=== PATIENT | female | born 1960 ===

== ENCOUNTER → 2018-01-31 17:00 | Outpatient (CLI) | payer SELFPAY | DX: Z23 Encounter for immunization (principal) | CPT/HCPCS: 90471; 90686 ==

== ENCOUNTER → 2019-02-03 12:06 | Outpatient (CLI) | payer OTHER, SELFPAY ==
--- NOTE | 2019-02-03 12:14 | DI.RAD.S_ITS ---
PROCEDURE: XR FOOT RT MIN 3V INDICATIONS: right foot pain TECHNIQUE: 3 views of the foot were acquired. COMPARISON: None. FINDINGS: Bones: No fractures or dislocations. No suspicious bony lesions. Expected postoperative appearance after osteotomy and screw fixation at the distal first metatarsal and also cannulated screw/stable fusion crossing the second proximal interphalangeal joint. Soft tissues: No tibiotalar joint effusion. Achilles tendon appears normal. IMPRESSION: Expected postoperative changes, no sign of device loosening or disruption, source of new pain right foot is not found. Dictated by: Clarence Gabriel M.D. on 02/03/2019 at 13:43 Approved by: Clarence Gabriel M.D. on 02/03/2019 at 13:44
== END ==
PROVIDERS: Visit Provider Nurse Practitioner Family
DX: M79.671 Pain in right foot (principal); Z98.890 Other specified postprocedural states
CPT/HCPCS: 73630

== ENCOUNTER → 2019-04-17 16:04 | Outpatient (CLI) | payer OTHER, SELFPAY ==
[2019-04-17 17:11] LABS: Hematocrit 42.9 % (36-46); Hemoglobin 14.3 g/dL (12.0-16.0); Mean Corpuscular HGB Conc 33.5 % (30-36); Mean Corpuscular Hemoglobin 26.7 PG (26-34); Mean Corpuscular Volume 79.8 fL (80-100); Platelet Count 213 X10^3/uL (150-400); Red Blood Cell Count 5.37 X10^6/uL (4.0-5.2); Red Cell Distribution Width 13.4 % (11.6-14.8); White Blood Cell Count 8.5 X10^3/uL (4.5-11.0)
[2019-04-17 17:23] LABS: Alanine Aminotransferase 16 IU/L (<35); Albumin 4.6 g/dL (3.5-5.0); Albumin Globulin Ratio 1.6 (1.0-2.8); Alkaline Phosphatase 76 U/L (38-126); Aspartate Aminotransferase 24 IU/L (14-36); Bilirubin Total 0.6 mg/dL (0.2-1.3); Blood Urea Nitrogen 12 mg/dL (7-17); Calcium 9.7 mg/dL (8.4-10.2); Carbon Dioxide 24 mmol/L (22-32); Chloride 105 mmol/L (98-107); Cholesterol 269 mg/dL (140-199); Estimated Glomerular Filt Rate > 60.0 mL/min (>60); Globulin 2.8 g/dL (1.7-4.1); Glucose 93 mg/dL (80-110); HDL Cholesterol 50 mg/dL (40-60); HEMOLYSIS < 15 (0-50); LDL Cholesterol Calculated 193 mg/dL (<100); Potassium 4.4 mmol/L (3.4-5.1); Sodium 140 mmol/L (137-145); Total Protein 7.4 g/dL (6.3-8.2); Triglycerides 128 mg/dL (35-150)
== END ==
PROVIDERS: PCP Nurse Practitioner Family; Visit Provider Nurse Practitioner Family
DX: Z00.00 Encounter for general adult medical examination without abnormal findings (principal); Z13.6 Encounter for screening for cardiovascular disorders
CPT/HCPCS: 36415; 80053; 80061; 85027

== ENCOUNTER → 2019-08-20 07:43 | Outpatient (CLI) | payer OTHER, SELFPAY ==
[2019-08-20 08:41] LABS: Cholesterol 189 mg/dL (140-199); HDL Cholesterol 43 mg/dL (40-60); LDL Cholesterol Calculated 126 mg/dL (<100); Triglycerides 99 mg/dL (35-150)
== END ==
PROVIDERS: PCP Nurse Practitioner Family; Referring Provider Nurse Practitioner Family; Visit Provider Nurse Practitioner Family
DX: E78.5 Hyperlipidemia, unspecified (principal)
CPT/HCPCS: 36415; 80061

== ENCOUNTER → 2019-11-05 08:37 | Outpatient (CLI) | payer OTHER, SELFPAY ==
[2019-11-08 10:15] LABS: COVID19 Sendout Not Detected (Not Detected)
== END ==
PROVIDERS: PCP Nurse Practitioner Family; Visit Provider Physician Assistant
DX: Z03.818 Encounter for observation for suspected exposure to other biological agents ruled out (principal)
CPT/HCPCS: 87635

== ENCOUNTER → 2020-02-04 01:07 | Outpatient (CLI) | payer OTHER, SELFPAY | PROVIDERS: PCP Nurse Practitioner Family; Referring Provider Internal Medicine; Visit Provider Internal Medicine | DX: Z23 Encounter for immunization (principal) | CPT/HCPCS: 90471; 90686 ==

== ENCOUNTER → 2020-04-29 08:02 | Outpatient (CLI) | payer OTHER, SELFPAY ==
[2020-04-29] MEDS: COVID-19 VACC(MODERNA-1)/PF 100 MCG/0.5 ML VIAL IM (08:10)
== END ==
PROVIDERS: PCP Nurse Practitioner Family; Visit Provider Internal Medicine
DX: Z23 Encounter for immunization (principal)
CPT/HCPCS: 0011A; 91301

== ENCOUNTER → 2020-05-26 08:03 | Outpatient (CLI) | payer OTHER, SELFPAY ==
[2020-05-26] MEDS: COVID-19 VACC #2, MRNA(MOD) 100 MCG/0.5 ML VIAL IM (08:09)
== END ==
PROVIDERS: PCP Nurse Practitioner Family; Visit Provider Internal Medicine
DX: Z23 Encounter for immunization (principal)
CPT/HCPCS: 0012A; 91301

== ENCOUNTER 2020-08-15 19:38 | Emergency (ER) | payer OTHER, SELFPAY ==
[2020-08-15 19:46] VITALS: BP 166/76; PULSE 93; RESP 16; TEMP 36.6; O2SAT 97; BMI 25.7
--- NOTE | 2020-08-15 19:53 | PC.NURSE ---
Patient has had rash on face since May. Last night she went to work and the rash became puffy and she feels it going into her eyes. She denies shortness of breathe, trouble swallowing.
--- NOTE | 2020-08-15 19:54 | ED.SKABFB ---
HPI - Skin/Abscess/Foreign Bdy General Chief complaint: Skin/Abscess/Foreign Body Stated complaint: RASH ON FACE Time Seen by Provider: 08/15/20 19:39 Source: patient Mode of arrival: Ambulatory Limitations: no limitations History of Present Illness HPI narrative: 59-year-old female nonsmoker with history of eczema and migraine presents with a chief complaint of an itchy red, scaling and plaque-like rash on much of her face over the past few days. She states that acts much like prior episodes of eczema. She denies any swelling of tongue, lip or throat. She has no difficulty swallowing. She has no chest pain, shortness of breath, wheezing or cough. Patient has had no fever or chills. She denies any exposure to potential allergens such as new food, soaps or lotions. She has tried various topicals which have provided little to no relief and is hoping for some help. MD complaint: rash Onset (ago): day(s) Tetanus up to date: yes Location: face Severity: moderate Quality: pruritic Relieving factors: none Exacerbating factors: none Context: none Treatments prior to arrival: OTC topical medication Related Data Previous Rx's Medication Instructions Recorded cetirizine 10 mg tablet 10 mg PO DAILY #30 tab 11/18/18 hydroxyzine HCl 25 mg tablet 25 mg PO BEDTIME PRN #30 tab 11/18/18 triamcinolone acetonide 0.1 % 1 applictn TOP BID PRN #60 ml 11/18/18 lotion ezetimibe 10 mg tablet 10 mg PO DAILY #90 tab 08/12/19 triamcinolone acetonide 0.1 % 1 applictn TOP BID PRN #80 gram 11/06/19 topical cream triamcinolone acetonide 0.1 % 1 applictn TOP BID PRN #30 gram 11/06/19 topical ointment hydroxyzine pamoate [Vistaril] 25 mg PO TID PRN #14 cap 08/15/20 prednisone See Rx Instructions .ROUTE 08/15/20 .COMPLEX #30 tab Allergies Allergy/AdvReac Type Severity Reaction Status Date / Time cigarette smoke Allergy Intermediate Eyes Verified 11/05/19 08:35 watery, nose itchy, coughing house dust Allergy Mild Coughing Verified 11/05/19 08:35 miracle grow Allergy swollen Uncoded 11/05/19 08:35 lips Review of Systems Constitutional Constitutional: Denies chills, Denies fatigue, Denies fever(s), Denies frequent falls, Denies lethargy and Denies weakness Eyes Eyes: Denies change in vision, Denies eye discharge, Denies irritation and Denies loss of vision ENT Ears, Nose, Mouth, and Throat: Denies change in voice, Denies dizziness, Denies neck pain, Denies sore throat and Denies throat swelling Cardiovascular Cardiovascular: Denies chest pain, Denies irregular heart rhythm, Denies lightheadedness, Denies palpitations, Denies dyspnea, Denies dyspnea on exertion and Denies orthopnea Respiratory Respiratory: Denies cough, Denies dyspnea, Denies dyspnea on exertion and Denies wheezing Gastrointestinal Gastrointestinal: Denies abdominal pain, Denies change in bowel habits, Denies diarrhea, Denies nausea and Denies vomiting Musculoskeletal Musculoskeletal: Denies neck pain and Denies numbness Integumentary/Breasts Skin/Breast: Reports pruritus, Reports erythema, Reports rash and Denies wounds Neurologic Neurologic: Denies behavioral changes, Denies confusion, Denies dizziness, Denies frequent falls, Denies loss of vision, Denies numbness and Denies weakness Psychiatric Psychiatric: Denies anxiety, Denies behavioral changes, Denies confusion, Denies depression, Denies homicidal ideation and Denies suicidal ideation Endocrine Endocrine: Denies fatigue, Denies flushing and Denies palpitations Hematologic/Lymphatic Hematologic/Lymphatic: Denies easy bruising Allergic/Immunologic Allergic/Immunologic: Denies urticaria, Denies throat swelling and Denies wheezing Patient History Medical History 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) Allergic reaction Herpes Lip licking dermatitis Localized viral skin infection (~2013) Mixed hyperlipidemia (12/2018) MRSA (methicillin resistant Staphylococcus aureus) Plantar warts (~2016) Surgical History Anesthesia History of bunionectomy History of hip replacement (~1997) Family History Father Mental health problem Brother History of heart disease Social History Smoking Status: Never smoker second hand exposure: No alcohol intake: never substance use type: marijuana (Smoke, every couple days) Smoking Status: Never smoker Exam Narrative Exam Narrative: GEN: AOx3 and in mild distress EYES: Pupils are equal, round, and reactive to light and accommodation. Extraoccular muscles are intact bilaterally. There is no subconjunctival hemorrhage or exudate. ENT: No facial swelling, no tongue, lip or throat swelling, airway patent CHEST: Lungs are clear to auscultation bilaterally and free of wheezes, rales, or rhonchi. Heart rate is regular rhythm, there are no murmurs, clicks, rubs, or gallops. There is no chest wall tenderness. ABD: Abdomen is soft and nontender. There is no guarding or rebound. Bowel sounds are normal in all 4 quadrants. There is no mass or organomegaly. EXT: Full painless ROM of all extremities with no loss of sensation or strength. SKIN: Erythematous, slightly raised with plaques on much of her phase. No tongue, lip or throat swelling. Not visualized elsewhere on her body Warm, pink, and dry. No erythema or rash Initial Vital Signs Initial Vital Signs: Vital Signs Temperature 97.8 F 08/15/20 19:46 Pulse Rate 93 H 08/15/20 19:46 Respiratory Rate 16 08/15/20 19:46 Blood Pressure 166/76 H 08/15/20 19:46 Pulse Oximetry 97 08/15/20 19:46 Course Vital Signs Vital signs: Vital Signs - 8 hr 08/15/20 19:46 08/15/20 20:00 Temperature 97.8 F Pulse Rate 93 H 98 H Respiratory Rate 16 14 Blood Pressure 166/76 H 166/76 H Pulse Oximetry 97 98 Discharge Plan Departure Patient Disposition: Home Clinical Impression: Facial rash Instructions: DI for Rash Activity Restrictions/Additional Instructions: *You have been diagnosed with [facial rash, likely eczema exacerbation] *What to do: *Take medications as directed *Follow up with your primary care provider in 2-3 days, call for an appointment. Let them know you were seen in the Emergency Department and that we ask that you be seen in follow up *Return to ER if you should have any new, worsening or concerning symptoms, such as [trouble breathing, trouble swallowing, swelling of tongue, lips or throat] Prescriptions: New prednisone 10 mg tablet See Rx Instructions .ROUTE .COMPLEX Qty: 30 RF: 0 hydroxyzine pamoate [Vistaril] 25 mg capsule 25 mg PO TID PRN (Reason: itching) Qty: 14 RF: 0 No Action ezetimibe [Zetia] 10 mg tablet 10 mg PO DAILY Qty: 90 RF: 0 triamcinolone acetonide 0.1 % ointment 1 applictn TOP BID PRN (Reason: itching) Qty: 30 RF: 0 triamcinolone acetonide 0.1 % cream 1 applictn TOP BID PRN (Reason: itching) Qty: 80 RF: 0 cetirizine 10 mg tablet 10 mg PO DAILY Qty: 30 RF: 0 triamcinolone acetonide 0.1 % lotion 1 applictn TOP BID PRN (Reason: urticaria) Qty: 60 RF: 0 hydroxyzine HCl 25 mg tablet 25 mg PO BEDTIME PRN (Reason: itching) Qty: 30 RF: 0 Referrals: Deejay Juarez ARNP [Primary Care Provider] -
[2020-08-15 20:00] VITALS: BP 166/76; PULSE 98; RESP 14; O2SAT 98
== END 2020-08-15 20:05 | disposition home or self-care (01) ==
PROVIDERS: Emergency Provider Emergency Medicine; PCP Nurse Practitioner Family
DX: R21 Rash and other nonspecific skin eruption (principal)
CPT/HCPCS: 99281

== ENCOUNTER → 2020-10-10 10:40 | Outpatient (CLI) | payer OTHER, SELFPAY ==
[2020-10-10 11:14] LABS: Hematocrit 38.7 % (36-46); Mean Corpuscular HGB Conc 33.5 % (30-36); Mean Corpuscular Hemoglobin 26.9 PG (26-34); Mean Corpuscular Volume 80.1 fL (80-100); Platelet Count 194 X10^3/uL (150-400); Red Blood Cell Count 4.83 X10^6/uL (4.0-5.2); Red Cell Distribution Width 13.8 % (11.6-14.8); White Blood Cell Count 9.3 X10^3/uL (4.5-11.0)
[2020-10-10 12:00] LABS: Erythrocyte Sedimentation Rate 22 MM/HR (0-20)
[2020-10-10 12:09] LABS: Alanine Aminotransferase 15 IU/L (<35); Albumin 4.2 g/dL (3.5-5.0); Albumin Globulin Ratio 1.5 (1.0-2.8); Alkaline Phosphatase 62 U/L (38-126); Aspartate Aminotransferase 23 IU/L (14-36); BUN Creatinine Ratio 16.5 (6-22); Bilirubin Total 0.2 mg/dL (0.2-1.3); Blood Urea Nitrogen 13 mg/dL (7-17); C-Reactive Protein Quant 0.8 mg/dL (<1.0); Calcium 9.4 mg/dL (8.4-10.2); Carbon Dioxide 26 mmol/L (22-32); Chloride 102 mmol/L (98-107); Estimated Glomerular Filt Rate > 60.0 mL/min (>60); Globulin 2.8 g/dL (1.7-4.1); Glucose 97 mg/dL (80-110); HEMOLYSIS < 15 (0-50); Potassium 4.4 mmol/L (3.4-5.1); Sodium 137 mmol/L (137-145)
[2020-10-11 16:39] LABS: ANA Screen, IFA Negative (.)
== END ==
PROVIDERS: PCP Nurse Practitioner Family; Referring Provider Nurse Practitioner Family; Visit Provider Nurse Practitioner Family
DX: R21 Rash and other nonspecific skin eruption (principal)
CPT/HCPCS: 36415; 80053; 85027; 85651; 86038; 86140

== ENCOUNTER 2020-10-20 08:14 | Emergency (ER) | payer OTHER, SELFPAY ==
[2020-10-20 08:29] VITALS: BP 171/93; PULSE 69; RESP 20; TEMP 36.3; O2SAT 99; BMI 25.0
--- NOTE | 2020-10-20 09:15 | DI.RAD.S_ITS ---
PROCEDURE: XR CHEST 1V INDICATIONS: chest pain TECHNIQUE: One view of the chest was acquired. COMPARISON: None. FINDINGS: Surgical changes and devices: None. Lungs and pleura: Lungs are clear. No pleural effusions or pneumothorax. Mediastinum: Mediastinal contours appear normal. Heart size is normal. Bones and chest wall: No suspicious bony lesions. Overlying soft tissues appear unremarkable. IMPRESSION: No acute process. Dictated by: Dana Colby M.D. on 10/20/2020 at 9:40 Approved by: Dana Colby M.D. on 10/20/2020 at 9:41
[2020-10-20 09:32] LABS: Add Manual Diff / Slide Review NO; Basophils Absolute Auto 100 /uL (0-100); Basophils Percent Auto 1.2 % (0-2); Eosinophils Absolute Auto 300 /uL (0-450); Eosinophils Percent Auto 2.7 % (2-4); Hematocrit 39.2 % (36-46); Lymphocytes Absolute Auto 3600 /uL (1100-4500); Lymphocytes Percent Auto 36.4 % (25-40); Mean Corpuscular HGB Conc 33.2 % (30-36); Mean Corpuscular Hemoglobin 26.4 PG (26-34); Mean Corpuscular Volume 79.6 fL (80-100); Monocytes Absolute Auto 800 /uL (0-900); Monocytes Percent Auto 8.1 % (3-14); Neutrophils Absolute Auto 5200 /uL (1500-7000); Neutrophils Percent Auto 51.6 % (50-75); Platelet Count 200 X10^3/uL (150-400); Red Blood Cell Count 4.93 X10^6/uL (4.0-5.2); Red Cell Distribution Width 13.6 % (11.6-14.8)
--- NOTE | 2020-10-20 09:38 | ED_ITS ---
HPI - Chest Pain General Chief Complaint: Chest Pain Stated Complaint: chest pain Time Seen by Provider: 10/20/20 09:38 Source: patient Mode of arrival: Ambulatory Limitations: language barrier History of Present Illness HPI narrative: This is a 60-year-old female comes with complaint of left upper chest discomfort. She has had a couple episodes over the last month. Overnight patient had left upper chest discomfort which felt like someone was stabbing her. It felt sort of taking her chest as well. Patient states she did not have any radiation to her neck, back or arm. She states her arm did felt funny. P atient states she had similar symptoms in her 20s and was told she had a ?sprain C3 through C5.? Patient states she did not have any additional symptoms, no diaphoresis, shortness of breath, no nausea or vomiting. She did have a little bit of headache. She states she also has not eaten anything. Patient states she has been quite stressed at work. 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 Patient states the last time she noticed this she had also been taking collagen powder and thought that might be related she stopped but then restarted again. Her most recent episode was at 3:00 a.m. today, lasted for about an hour and resolved on its own and she has not had any recurrence. Patient states she is healthy, no regular medications. She has had a prior hip surgery. This was remote. No tobacco, no alcohol, occasional THC. Her last stress test was 20 years or more ago. Her family history includes some heart issues for her maternal grandmother who she states of old age and no other known cardiac, follicle pulmonary history. She states her mom is very healthy. Her primary care is [facility]. Related Data Previous Rx's Medication Instructions Recorded cetirizine 10 mg tablet 10 mg PO DAILY #30 tab 11/18/18 triamcinolone acetonide 0.1 % 1 applictn TOP BID PRN #60 ml 11/18/18 lotion triamcinolone acetonide 0.1 % 1 applictn TOP BID PRN #80 gram 11/06/19 topical cream triamcinolone acetonide 0.1 % 1 applictn TOP BID PRN #30 gram 11/06/19 topical ointment hydroxyzine pamoate 25 mg capsule 25 mg PO TID PRN #14 cap 08/15/20 (Vistaril) tacrolimus 0.03 % topical ointment 1 applic TOPICAL BID #30 g 09/27/20 Allergies Allergy/AdvReac Type Severity Reaction Status Date / Time cigarette smoke Allergy Intermediate Eyes Verified 10/20/20 08:29 watery, nose itchy, coughing house dust Allergy Mild Coughing Verified 10/20/20 08:29 miracle grow Allergy swollen Uncoded 09/27/20 16:33 lips Review of Systems Review of Systems ROS Unobtainable: All systems reviewed & are unremarkable except as noted in HPI and below Patient History Medical History 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) Allergic reaction Herpes Lip licking dermatitis Localized viral skin infection (~2013) Mixed hyperlipidemia (12/2018) MRSA (methicillin resistant Staphylococcus aureus) Plantar warts (~2016) Rash and nonspecific skin eruption Rib pain on right side Surgical History Anesthesia History of bunionectomy History of hip replacement (~1997) Family History Father Mental health problem Brother History of heart disease Social History Smoking Status: Never smoker second hand exposure: No alcohol intake: never substance use type: marijuana (Smoke, every couple days) Smoking Status: Never smoker alcohol intake frequency: other Substance Use Type: marijuana Exam Narrative Exam Narrative: GENERAL: Alert and oriented x three, well-nourished female in mild distress. HEENT: Head normocephalic, atraumatic, EOMI, pupils reactive, face symmetric, moist mucous membranes NECK: Supple, full range of motion CARDIOVASCULAR: Regular rate and rhythm without murmurs, rubs or gallops. Patient has mildly reproducible chest pain on the left. No rashes, skin changes noted. No bruising or ecchymosis. RESPIRATORY: Breath sounds equal bilaterally, no wheezes rales or rhonchi. ABDOMEN: Soft, nontender. Normoactive bowel sounds all 4 quadrants. No guarding or rebound, rigidity, no mass : No CVA tenderness EXTREMITIES: Normal range of motion, no clubbing or edema. Neurovascularly intact NEUROLOGICAL: Cranial nerves II through XII grossly intact. Moving all extremities SKIN: Warm, dry, no petechiae, no rashes or lesions. Initial Vital Signs Initial Vital Signs: Vital Signs Temperature 97.4 F L 10/20/20 08:29 Pulse Rate 69 10/20/20 08:29 Respiratory Rate 20 10/20/20 08:29 Blood Pressure 171/93 H 10/20/20 08:29 Pulse Oximetry 99 10/20/20 08:29 Scores HEART Score Heart Score history: Moderately Suspicious Heart Score EKG: Non-Specific repolarization disturbance Heart Score Age: 45-64 years old Heart Score risk factors: No known risk factors Heart Score troponin: < or = to normal limit Heart Score Total: 3 Course Orders Ordered: ED Orders 10/20/20 08:31 EKG-12 Lead Routine 10/20/20 09:15 XR chest 1V Stat 10/20/20 09:20 Complete Blood Count AUTO DIFF Stat Comprehensive Metabolic Panel Stat Lipase Stat Troponin & CK Cardiac Panel Stat Vital Signs Vital signs: Vital Signs - 8 hr 10/20/20 08:29 Temperature 97.4 F L Pulse Rate 69 Respiratory Rate 20 Blood Pressure 171/93 H Pulse Oximetry 99 MDM - Chest Pain Lab Data Result diagrams: 10/20/20 09:20 10/20/20 09:20 Labs: Lab Results 10/20/20 10/20/20 Range/Units 09:20 09:20 WBC 10.0 (4.5-11.0) X10^3/uL RBC 4.93 (4.0-5.2) X10^6/uL Hgb 13.0 (12.0-16.0) g/dL Hct 39.2 (36-46) % MCV 79.6 L (80-100) fL MCH 26.4 (26-34) PG MCHC 33.2 (30-36) % RDW 13.6 (11.6-14.8) % Plt Count 200 (150-400) X10^3/uL Neut % (Auto) 51.6 (50-75) % Lymph % (Auto) 36.4 (25-40) % [place] % (Auto) 8.1 (3-14) % Eos % (Auto) 2.7 (2-4) % Baso % (Auto) 1.2 (0-2) % Neut # (Auto) 5200 (0682-6249) /uL Lymph # (Auto) 3600 (5270-4591) /uL [place] # (Auto) 800 (0-900) /uL Eos # (Auto) 300 (0-450) /uL Baso # (Auto) 100 (0-100) /uL Sodium 138 (137-145) mmol/L Potassium 3.9 (3.4-5.1) mmol/L Chloride 106 (98-107) mmol/L Carbon Dioxide 23 (22-32) mmol/L BUN 17 (7-17) mg/dL Creatinine 0.71 (0.52-1.04) mg/dL Estimated GFR > 60.0 (>60) mL/min BUN/Creatinine Ratio 23.9 H (6-22) Glucose 103 (80-110) mg/dL Calcium 9.6 (8.4-10.2) mg/dL Total Bilirubin 0.4 (0.2-1.3) mg/dL AST 27 (14-36) IU/L ALT 18 (<35) IU/L Alkaline Phosphatase 71 (38-126) U/L Total Creatine Kinase 84 (30-135) U/L CK-MB (CK-2) TNP CK-MB (CK-2) Rel Index TNP Troponin I < 0.012 (0.01-0.034) ng/mL Total Protein 7.9 (6.3-8.2) g/dL Albumin 4.6 (3.5-5.0) g/dL Globulin 3.3 (1.7-4.1) g/dL Albumin/Globulin Ratio 1.4 (1.0-2.8) Lipase 328 H (23-300) U/L Imaging Data Chest x-ray: Radiologist's Impression: [address] [id number] ReportSigned Patient: Dimitri Vaughan#: [id number]: 9Acct:[id number]/Sex: 60 / FDate of Service: 10/20/20Loc: EDAccession Number: [id number] Procedure: XR chest 1V Ordering Provider: Mank,Jennifer C D.O. PROCEDURE: XR CHEST 1V INDICATIONS: chest pain TECHNIQUE: One view of the chest was acquired. COMPARISON: None. FINDINGS: Surgical changes and devices: None. Lungs and pleura: Lungs are clear. No pleural effusions or pneumothorax. Mediastinum: Mediastinal contours appear normal. Heart size is normal. Bones and chest wall: No suspicious bony lesions. Overlying soft tissues appear unremarkable. IMPRESSION: No acute process. Dictated by: Dana Colby M.D. on 10/20/2020 at 9:40 Approved by: Dana Colby M.D. on 10/20/2020 at 9:41 ECG Data Interpretation: Sinus rhythm, rate of 76 P are 142 QRS 84 and QTC of 463. Patient does have a Q-wave in lead 3. No elevation appreciated otherwise. Patient does not have prior for comparison. MDM Narrative Medical decision making narrative: This is a 60-year-old female who comes emergency department with complaint of chest pain which has been intermittent. Patient does not have any other symptoms. She is slightly reproducible symptoms but based on her symptoms observation for chest pain was offered if her lab work is negative. Patient defers repeat troponin or further observation in the department for observation for chest pain overnight in the hospital and stress testing in the morning. She states she will follow-up with her physician. We did discuss that I would recommend she have stress testing I am not entirely convinced this is musculoskeletal. Discharge Plan Departure Patient Disposition: Home Clinical Impression: Chest pain, Elevated lipase Instructions: DI for Chest Pain Activity Restrictions/Additional Instructions: Please follow-up with your physician in the next several days for recheck and stress testing. I would recommend that you have further evaluation as there is potential for cardiac cause of your chest discomfort. Your lipase for pancreatic enzyme is mildly elevated, this is a less likely cause of her left upper chest discomfort today. If you have worsening or worsening pain in the epigastric or upper abdominal area it should be rechecked. Please return for new or worsening symptoms, recurrent chest pain, shortness of breath, lightheadedness or passing out, sweatiness, persistent vomiting or other new or concerning symptoms. Prescriptions: No Action triamcinolone acetonide 0.1 % ointment 1 applictn TOP BID PRN (Reason: itching) Qty: 30 RF: 0 triamcinolone acetonide 0.1 % cream 1 applictn TOP BID PRN (Reason: itching) Qty: 80 RF: 0 cetirizine 10 mg tablet 10 mg PO DAILY Qty: 30 RF: 0 triamcinolone acetonide 0.1 % lotion 1 applictn TOP BID PRN (Reason: urticaria) Qty: 60 RF: 0 tacrolimus 0.03 % ointment 1 applic topical BID Qty: 30 RF: 2 hydroxyzine pamoate [Vistaril] 25 mg capsule 25 mg PO TID PRN (Reason: itching) Qty: 14 RF: 0 Referrals: Deejay Juarez ARNP [Primary Care Provider] -
[2020-10-20 09:45] LABS: Alanine Aminotransferase 18 IU/L (<35); Albumin 4.6 g/dL (3.5-5.0); Albumin Globulin Ratio 1.4 (1.0-2.8); Alkaline Phosphatase 71 U/L (38-126); Aspartate Aminotransferase 27 IU/L (14-36); BUN Creatinine Ratio 23.9 (6-22); Bilirubin Total 0.4 mg/dL (0.2-1.3); Blood Urea Nitrogen 17 mg/dL (7-17); Calcium 9.6 mg/dL (8.4-10.2); Carbon Dioxide 23 mmol/L (22-32); Chloride 106 mmol/L (98-107); Creatine Kinase 84 U/L (30-135); Estimated Glomerular Filt Rate > 60.0 mL/min (>60); Globulin 3.3 g/dL (1.7-4.1); Glucose 103 mg/dL (80-110); HEMOLYSIS 15 (0-50); Lipase 328 U/L (23-300); Potassium 3.9 mmol/L (3.4-5.1); Sodium 138 mmol/L (137-145); Total Protein 7.9 g/dL (6.3-8.2)
[2020-10-20 09:56] LABS: Troponin I < 0.012 ng/mL (0.01-0.034)
[2020-10-20 10:31] VITALS: BP 173/95; PULSE 79; O2SAT 100
== END 2020-10-20 10:32 | disposition home or self-care (01) ==
PROVIDERS: Emergency Provider Emergency Medicine; PCP Nurse Practitioner Family
DX: R07.9 Chest pain, unspecified (principal); R74.8 Abnormal levels of other serum enzymes
CPT/HCPCS: 36415; 71045; 80053; 82550; 83690; 84484; 85025; 93005; 99283; 99284

== ENCOUNTER → 2021-01-31 | Outpatient (CLI) | payer OTHER, SELFPAY | PROVIDERS: PCP Nurse Practitioner Family; Referring Provider Internal Medicine; Visit Provider Internal Medicine | DX: Z23 Encounter for immunization (principal) | CPT/HCPCS: 90471; 90686 ==

== ENCOUNTER → 2021-03-27 08:09 | Outpatient (CLI) | payer OTHER, SELFPAY ==
--- NOTE | 2021-03-27 08:10 | DI.MG.S_ITS ---
BILATERAL DIGITAL SCREENING MAMMOGRAM 3D/2D WITH CAD: 03/27/2021 CLINICAL: Routine screening. Comparison is made to exam dated: 06/02/2013 mammogram - [facility]. There are scattered fibroglandular elements in both breasts. Current study was also evaluated with a Computer Aided Detection (CAD) system. No significant masses, calcifications, or other findings are seen in either breast. There has been no significant interval change. IMPRESSION: NEGATIVE There is no mammographic evidence of malignancy. A 1 year screening mammogram is recommended. This exam was interpreted at Station ID: [id number]. NOTE: For mammograms, a report in lay terms will be sent to the patient. Approximately 15% of breast malignancies will not be visualized mammographically. In the management of a palpable breast mass, a negative mammogram must not discourage biopsy of a clinically suspicious lesion. Electronically Signed By: Trenton cárdenas/skylar:03/27/2021 14:13:40 letter sent: Normal Exam ACR BI-RADS Category 1: Negative [id number]
--- NOTE | 2021-03-27 08:10 | DI.RAD.S_ITS ---
PROCEDURE: XR RIBS RT MIN 3V W CXR 1V INDICATIONS: right rib pain TECHNIQUE: 2 views of the right ribs were acquired, along with a single view chest. COMPARISON: None. FINDINGS: Surgical changes and devices: None. Bones and chest wall: No fractures or dislocations. No suspicious bony lesions. Overlying soft tissues appear unremarkable. Lungs and pleura: No pleural effusions or pneumothorax. Lungs appear clear. Mediastinum: Mediastinal contours appear normal. Heart size is normal. IMPRESSION: No displaced rib fracture. No acute cardiopulmonary disease process. Dictated by: Linda Barros MD, PhD on 03/27/2021 at 15:14 Approved by: Linda Barros MD, PhD on 03/27/2021 at 15:16
== END ==
PROVIDERS: PCP Nurse Practitioner Family; Referring Provider Nurse Practitioner Family; Visit Provider Nurse Practitioner Family
DX: Z12.31 Encounter for screening mammogram for malignant neoplasm of breast (principal); R07.81 Pleurodynia
CPT/HCPCS: 71101; 77063; 77067

== ENCOUNTER → 2022-01-02 17:16 | Outpatient (CLI) | payer OTHER, SELFPAY ==
--- NOTE | 2022-01-02 17:18 | DI.US.S_ITS ---
PROCEDURE: US AXILLARY ONLY INDICATIONS: Right axilla growth TECHNIQUE: Real-time focused scanning was performed of the right axilla, with image documentation. COMPARISON: None. FINDINGS: In the area of palpable abnormality in the right axilla there are multiple lymph nodes with fatty hilum Aditi the largest measuring 1.7 x 0.6 x 1.5 cm. These lymph nodes demonstrate normal cortical thickness. IMPRESSION: Mildly enlarged right axillary lymph nodes with normal fatty jules and no cortical thickening. Recommend clinical and ultrasound follow-up if clinically indicated. Dictated by: Iain Agrawal M.D. on 01/02/2022 at 18:23 Approved by: Iain Agrawal M.D. on 01/02/2022 at 18:25
== END ==
PROVIDERS: PCP Nurse Practitioner Family; Referring Provider Pediatrics; Visit Provider Pediatrics
DX: M79.621 Pain in right upper arm (principal); R59.0 Localized enlarged lymph nodes
CPT/HCPCS: 76882

== ENCOUNTER → 2022-03-07 15:40 | Outpatient (CLI) | payer OTHER, SELFPAY | PROVIDERS: PCP Family Medicine; Referring Provider Internal Medicine; Visit Provider Internal Medicine | DX: Z23 Encounter for immunization (principal) | CPT/HCPCS: 90471; 90686 ==

== ENCOUNTER → 2022-04-05 16:38 | Outpatient (CLI) | payer OTHER, SELFPAY ==
[2022-04-10 17:11] LABS: Fecal Immunochemical Test Negative (Negative)
== END ==
PROVIDERS: PCP Family Medicine; Referring Provider Family Medicine; Visit Provider Family Medicine
DX: Z12.11 Encounter for screening for malignant neoplasm of colon (principal)
CPT/HCPCS: 82274